=== PATIENT | female | born 1955 | race American Indian/Alaskan Native ===

== ENCOUNTER 2016-07-11 08:07 | Outpatient (CLI) | payer BC ==
[2016-07-11] MEDS ORDERED: XYLOCAINE TOPICAL 4% TP ONE ×2 (09:20→09:30)
== END 2016-07-11 08:08 | disposition home or self-care (01) ==
LOC: WOUND 08:07
PROVIDERS: ATTEND Podiatrist
DX: I87.311 Chronic venous hypertension (idiopathic) with ulcer of right lower extremity (principal); L97.812 Non-pressure chronic ulcer of other part of right lower leg with fat layer exposed; E66.3 Overweight; K21.9 Gastro-esophageal reflux disease without esophagitis; J45.909 Unspecified asthma, uncomplicated; I10 Essential (primary) hypertension
CPT/HCPCS: 11042; 87075; 87116; G0463; 87076; 87186; 99205

== ENCOUNTER 2016-07-18 08:56 | Outpatient (CLI) | payer BC ==
[2016-07-18] MEDS ORDERED: XYLOCAINE TOPICAL 2% ONE (09:18)
[2016-07-18] MEDS ORDERED: XYLOCAINE TOPICAL 2% TP ONE (15:36)
== END 2016-07-18 08:57 | disposition home or self-care (01) ==
LOC: WOUND 08:56
PROVIDERS: ATTEND Podiatrist
DX: I87.311 Chronic venous hypertension (idiopathic) with ulcer of right lower extremity (principal); L97.812 Non-pressure chronic ulcer of other part of right lower leg with fat layer exposed; E66.3 Overweight; I89.0 Lymphedema, not elsewhere classified; K21.9 Gastro-esophageal reflux disease without esophagitis; J45.909 Unspecified asthma, uncomplicated

== ENCOUNTER 2016-07-25 10:27 | Outpatient (CLI) | payer BC ==
[2016-07-25] MEDS ORDERED: XYLOCAINE TOPICAL 2% TP ONE ×2 (11:13→13:06)
== END 2016-07-25 10:28 | disposition home or self-care (01) ==
LOC: WOUND 10:27
PROVIDERS: ATTEND Podiatrist
DX: I87.311 Chronic venous hypertension (idiopathic) with ulcer of right lower extremity (principal); L97.812 Non-pressure chronic ulcer of other part of right lower leg with fat layer exposed; E66.3 Overweight; K21.9 Gastro-esophageal reflux disease without esophagitis; J45.909 Unspecified asthma, uncomplicated; I89.0 Lymphedema, not elsewhere classified

== ENCOUNTER 2016-08-01 10:09 | Outpatient (CLI) | payer BC ==
[2016-08-01] MEDS ORDERED: XYLOCAINE TOPICAL 4% TP ONE ×2 (10:27→12:19)
== END 2016-08-01 10:10 | disposition home or self-care (01) ==
LOC: WOUND 10:09
PROVIDERS: ATTEND Podiatrist
DX: I87.311 Chronic venous hypertension (idiopathic) with ulcer of right lower extremity (principal); L97.811 Non-pressure chronic ulcer of other part of right lower leg limited to breakdown of skin; I89.0 Lymphedema, not elsewhere classified; E66.3 Overweight; R60.9 Edema, unspecified; J45.909 Unspecified asthma, uncomplicated; I10 Essential (primary) hypertension

== ENCOUNTER 2016-08-08 09:42 | Outpatient (CLI) | payer BC ==
[2016-08-08] MEDS ORDERED: XYLOCAINE TOPICAL 4% TP ONE ×2 (10:10→13:14)
[2016-08-08] MEDS ORDERED: SANTYL TP ONE ×2 (11:03→13:14)
== END 2016-08-08 09:43 | disposition home or self-care (01) ==
LOC: WOUND 09:42
PROVIDERS: ATTEND Podiatrist
DX: I87.311 Chronic venous hypertension (idiopathic) with ulcer of right lower extremity (principal); L97.812 Non-pressure chronic ulcer of other part of right lower leg with fat layer exposed; E66.9 Obesity, unspecified; K21.9 Gastro-esophageal reflux disease without esophagitis; J45.909 Unspecified asthma, uncomplicated; I10 Essential (primary) hypertension; I89.0 Lymphedema, not elsewhere classified

== ENCOUNTER 2016-08-15 09:56 | Outpatient (CLI) | payer BC ==
[2016-08-15] MEDS ORDERED: XYLOCAINE TOPICAL 4% TP ONE ×2 (10:38→12:25)
== END 2016-08-15 09:57 | disposition home or self-care (01) ==
LOC: WOUND 09:56
PROVIDERS: ATTEND Surgery
DX: I87.311 Chronic venous hypertension (idiopathic) with ulcer of right lower extremity (principal); L97.811 Non-pressure chronic ulcer of other part of right lower leg limited to breakdown of skin; I89.0 Lymphedema, not elsewhere classified; E66.9 Obesity, unspecified; J45.909 Unspecified asthma, uncomplicated
CPT/HCPCS: 87075; 87116; G0463; 87076; 87186; 99214

== ENCOUNTER 2016-08-22 09:44 | Outpatient (CLI) | payer BC ==
[2016-08-22] MEDS ORDERED: XYLOCAINE TOPICAL 2% TP ONE ×2 (09:47→10:17)
== END 2016-08-22 09:45 | disposition home or self-care (01) ==
LOC: WOUND 09:44
PROVIDERS: ATTEND Surgery
DX: I87.311 Chronic venous hypertension (idiopathic) with ulcer of right lower extremity (principal); L97.812 Non-pressure chronic ulcer of other part of right lower leg with fat layer exposed; E66.9 Obesity, unspecified; J45.909 Unspecified asthma, uncomplicated; Z68.44 Body mass index [BMI] 60.0-69.9, adult
CPT/HCPCS: 99213; G0463

== ENCOUNTER 2016-09-05 09:51 | Outpatient (CLI) | payer BC ==
[2016-09-05] MEDS ORDERED: XYLOCAINE TOPICAL 4% TP ONE ×2 (10:05→14:13)
[2016-09-05] MEDS ORDERED: SILVER NITRATE TP ONE ×2 (10:38→15:00)
== END 2016-09-05 09:52 | disposition home or self-care (01) ==
LOC: WOUND 09:51
PROVIDERS: ATTEND Surgery
DX: I87.311 Chronic venous hypertension (idiopathic) with ulcer of right lower extremity (principal); L97.812 Non-pressure chronic ulcer of other part of right lower leg with fat layer exposed; E66.9 Obesity, unspecified; J45.909 Unspecified asthma, uncomplicated; Z68.44 Body mass index [BMI] 60.0-69.9, adult
CPT/HCPCS: 17250; G0463

== ENCOUNTER 2016-09-12 10:48 | Outpatient (CLI) | payer BC ==
[2016-09-12] MEDS ORDERED: XYLOCAINE TOPICAL 2% ONE (12:25)
[2016-09-12] MEDS ORDERED: XYLOCAINE TOPICAL 4% TP ONE (15:35)
== END 2016-09-12 10:49 | disposition home or self-care (01) ==
LOC: WOUND 10:48
PROVIDERS: ATTEND Surgery
DX: I87.311 Chronic venous hypertension (idiopathic) with ulcer of right lower extremity (principal); L97.812 Non-pressure chronic ulcer of other part of right lower leg with fat layer exposed; E66.9 Obesity, unspecified; I89.0 Lymphedema, not elsewhere classified; J45.909 Unspecified asthma, uncomplicated; Z68.44 Body mass index [BMI] 60.0-69.9, adult

== ENCOUNTER 2016-09-19 09:46 | Outpatient (CLI) | payer BC ==
[2016-09-19] MEDS ORDERED: XYLOCAINE TOPICAL 2% ONE (10:16)
[2016-09-19] MEDS ORDERED: XYLOCAINE TOPICAL 2% TP ONE (11:52)
== END 2016-09-19 09:47 | disposition home or self-care (01) ==
LOC: WOUND 09:46
PROVIDERS: ATTEND Surgery
DX: I87.311 Chronic venous hypertension (idiopathic) with ulcer of right lower extremity (principal); L97.812 Non-pressure chronic ulcer of other part of right lower leg with fat layer exposed; E66.9 Obesity, unspecified; J45.909 Unspecified asthma, uncomplicated; Z68.44 Body mass index [BMI] 60.0-69.9, adult

== ENCOUNTER 2016-09-27 08:46 | Outpatient (CLI) | payer BC ==
[2016-09-27] MEDS ORDERED: XYLOCAINE TOPICAL 2% TP ONE (09:09)
[2016-09-27] MEDS ORDERED: XYLOCAINE TOPICAL 2% ONE (09:09)
== END 2016-09-27 08:47 | disposition home or self-care (01) ==
LOC: WOUND 08:46
PROVIDERS: ATTEND Internal Medicine
DX: I87.311 Chronic venous hypertension (idiopathic) with ulcer of right lower extremity (principal); L97.812 Non-pressure chronic ulcer of other part of right lower leg with fat layer exposed; E66.9 Obesity, unspecified; K21.9 Gastro-esophageal reflux disease without esophagitis; J45.909 Unspecified asthma, uncomplicated; Z68.44 Body mass index [BMI] 60.0-69.9, adult

== ENCOUNTER 2016-10-03 09:47 | Outpatient (CLI) | payer BC ==
[2016-10-03] MEDS ORDERED: XYLOCAINE TOPICAL 4% TP ONE ×2 (10:04→10:11)
== END 2016-10-03 09:48 | disposition home or self-care (01) ==
LOC: WOUND 09:47
PROVIDERS: ATTEND Surgery
DX: I87.311 Chronic venous hypertension (idiopathic) with ulcer of right lower extremity (principal); L97.812 Non-pressure chronic ulcer of other part of right lower leg with fat layer exposed; J45.909 Unspecified asthma, uncomplicated; E66.9 Obesity, unspecified; I10 Essential (primary) hypertension; Z68.44 Body mass index [BMI] 60.0-69.9, adult

== ENCOUNTER 2016-10-18 09:41 | Outpatient (CLI) | payer BC ==
[2016-10-18] MEDS ORDERED: XYLOCAINE TOPICAL 2% ONE (10:22)
[2016-10-18] MEDS ORDERED: XYLOCAINE TOPICAL 4% TP ONE (10:30)
[2016-10-18] MEDS ORDERED: XYLOCAINE TOPICAL 2% TP ONE (10:30)
== END 2016-10-18 09:42 | disposition home or self-care (01) ==
LOC: WOUND 09:41
PROVIDERS: ATTEND Surgery
DX: I87.311 Chronic venous hypertension (idiopathic) with ulcer of right lower extremity (principal); L97.812 Non-pressure chronic ulcer of other part of right lower leg with fat layer exposed; E66.9 Obesity, unspecified; J45.909 Unspecified asthma, uncomplicated; Z68.44 Body mass index [BMI] 60.0-69.9, adult
CPT/HCPCS: 99214; G0463

== ENCOUNTER 2016-10-24 09:42 | Outpatient (CLI) | payer BC | END 2016-10-24 09:43 | disposition home or self-care (01) | LOC: WOUND 09:42 | PROVIDERS: ATTEND Surgery | DX: I87.311 Chronic venous hypertension (idiopathic) with ulcer of right lower extremity (principal); L97.812 Non-pressure chronic ulcer of other part of right lower leg with fat layer exposed; E66.9 Obesity, unspecified; J45.909 Unspecified asthma, uncomplicated; Z68.44 Body mass index [BMI] 60.0-69.9, adult | CPT/HCPCS: 99213; G0463 ==